=== PATIENT | female | born 1975 | race Caucasian/White ===

== ENCOUNTER 2023-10-21 17:24 | Emergency (ER) | payer SELFPAY ==
[~2023-10-21] VITALS: Ht 170.2 cm; Wt 59.0 kg
[2023-10-21 17:28] VITALS: BP 106/63; PULSE 99; RESP 18; TEMP 98.6; O2SAT 99
== END 2023-10-21 18:47 | disposition home or self-care (01) ==
LOC: ER 17:24
DX: R68.89 Other general symptoms and signs (principal); F31.9 Bipolar disorder, unspecified
CPT/HCPCS: 99283